=== PATIENT | male | born 1975 | race Caucasian/White ===

== ENCOUNTER 2018-11-22 08:27 | Emergency (ER) | payer BC ==
[~2018-11-22] VITALS: Ht 185.4 cm; Wt 136.1 kg
[2018-11-22 08:29] VITALS: Ht 185.4 cm; Wt 136.1 kg
[2018-11-22 10:55] VITALS: BP 124/94
== END 2018-11-22 10:55 | disposition home or self-care (01) ==
LOC: ED 08:27
DX: S16.1XXA Strain of muscle, fascia and tendon at neck level, initial encounter (principal); S76.911A Strain of unspecified muscles, fascia and tendons at thigh level, right thigh, initial encounter; S76.011A Strain of muscle, fascia and tendon of right hip, initial encounter; V48.5XXA Car driver injured in noncollision transport accident in traffic accident, initial encounter; Y93.I9 Activity, other involving external motion; Y92.488 Other paved roadways as the place of occurrence of the external cause; Y99.8 Other external cause status
CPT/HCPCS: J1885